=== PATIENT | male | born 1970 | race Caucasian/White ===

== ENCOUNTER 2017-03-30 19:10 | Emergency (ER) | payer SELFPAY ==
[2017-03-30 19:12] VITALS: BMI 23.7
[2017-03-30 19:22] VITALS: RESP 16; TEMP 98.2
[2017-03-30] MEDS ORDERED: Sodium Chloride 0.9% 500 ML IV STA (19:34)
[2017-03-30 20:03] LABS: ADD MANUAL DIFF? NO
[2017-03-30 20:07] LABS: BASO % 1.8 % (0.0-3.0); EOS # 0.1 (0.0-0.7); EOS % 2.5 % (1.5-5.0); GRAN # 2.28 (1.4-6.5); GRAN % 41.2 % (50.0-68.0); LYMPH # 2.4 (1.2-3.4); LYMPH % 42.4 % (22.0-35.0); MEAN CELL VOLUME 97.4 fL (80.0-105.0); MEAN CORPUSCULAR HEMOGLOBIN 34.6 pg (25.0-35.0); MEAN CORPUSCULAR HGB CONC 35.5 g/dl (31.0-37.0); MEAN PLATELET VOLUME 11.1 fl (7.0-11.0); MONO # 0.7 (0.1-0.6); MONO % 12.1 % (1.0-6.0); PLATELET COUNT 157 10^3/uL (120.0-450.0); RED CELL DISTRIBUTION WIDTH 13.7 % (11.5-14.5); WHITE BLOOD COUNT 5.5 10^3/ul (4.5-11.0)
[2017-03-30 20:18] VITALS: BP 146/90; PULSE 69; O2SAT 96
[2017-03-30 20:18] LABS: ALB/GLOB RATIO 1.4 (1.1-1.8); ALKALINE PHOSPHATASE 363 U/L (38-133); ALT/SGPT 131 U/L (7-56); AMYLASE 265 U/L (35-125); AST/SGOT 136 U/L (15-59); BILIRUBIN,TOTAL 0.7 mg/dL (0.2-1.3); BLOOD UREA NITROGEN 9 mg/dL (7-21); CALCIUM 9.4 mg/dL (8.4-10.5); CARBON DIOXIDE 25 mmol/L (21-33); CHLORIDE 107 mmol/L (98-107); GFR AFRICAN-AMERICAN > 60; GLUCOSE,RANDOM 124 mg/dL (70-110); LIPASE 1437 U/L (23-300); POTASSIUM 4.3 mmol/L (3.6-5.0); SODIUM 143 mmol/L (132-148); TOTAL PROTEIN 7.9 g/dL (5.8-8.3)
[2017-03-30 20:30] LABS: TROPONIN I < 0.01 ng/mL
--- NOTE | 2017-03-30 21:27 | ED PDOC ---
Arrival/HPI - General Chief Complaint: GI Problem Time Seen by Provider: 03/30/17 19:24 Historian: Patient - History of Present Illness Narrative History of Present Illness (Text): 03/30/17 21:25 Dayo Clayton is a 46 year old male, with a history of alcohol abuse, presents to the emergency department complaining of rectal bleeding for past 4 days. Also complains of abdominal discomfort associated with nausea and vomiting. Denies any hematemesis. Patient states he noticed blood while wiping after bowel movement. Denies any fever, chills, headache, dizziness, chest pain, difficulty breathing, diarrhea, urinary symptoms, or any other complaints at this time. Time/Duration: < week (4 days ) Symptom Onset: Gradual Severity Level: Mild Activities at Onset: Light Past Medical History - Provider Review Nursing Documentation Reviewed: Yes - Infectious Disease Hx of Infectious Diseases: None - Cardiac Hx Cardiac Disorders: No - Pulmonary Hx Respiratory Disorders: No - Neurological Hx Neurological Disorder: No - HEENT Hx HEENT Disorder: No - Renal Hx Renal Disorder: No - Endocrine/Metabolic Hx Endocrine Disorders: No - Hematological/Oncological Hx Blood Transfusions: No Hx Blood Transfusion Reaction: No - Integumentary Hx Dermatological Disorder: No - Musculoskeletal/Rheumatological Hx Musculoskeletal Disorders: No Hx Falls: No - Gastrointestinal Hx Pancreatitis: Yes - Genitourinary/Gynecological Hx Genitourinary Disorders: No - Psychiatric Hx Psychophysiologic Disorder: No Hx Substance Use: Yes - Surgical History Other/Comment: COLONOSCOPY - Anesthesia Hx Anesthesia: No Hx Anesthesia Reactions: No Hx Malignant Hyperthermia: No Family/Social History - Physician Review Nursing Documentation Reviewed: Yes Family/Social History: No Known Family HX Smoking Status: Heavy Smoker > 10 Cigarettes Daily Hx Alcohol Use: Yes (Daily) Frequency of alcohol use: Daily Hx Substance Use: Yes Substance used: HEROIN Allergies/Home Meds Allergies/Adverse Reactions: Allergies No Known Allergies Allergy (Verified 03/30/17 19:16) Home Medications: Home Meds Medication Instructions Recorded Confirmed No Known Home Med 03/30/17 03/30/17 Review of Systems - Physician Review All systems were reviewed & negative as marked: Yes - Review of Systems Constitutional: Normal. absent: Fatigue, Fevers Respiratory: Normal. absent: SOB, Cough, Sputum Cardiovascular: Normal. absent: Chest Pain, Palpitations Gastrointestinal: Abdominal Pain, Nausea, Vomiting, Other (rectal bleeding ). absent: Diarrhea Genitourinary Male: Normal Neurological: Normal. absent: Headache, Dizziness Psychiatric: Normal Physical Exam Vital Signs Reviewed: Yes Vital Signs Temp Pulse Resp BP Pulse Ox 03/30/17 19:34 69 16 146/90 96 03/30/17 19:17 98.2 F 68 16 164/71 H 97 Temperature: Afebrile Blood Pressure: Hypertensive Pulse: Regular Respiratory Rate: Normal Appearance: Positive for: Well-Appearing, Non-Toxic, Comfortable Pain Distress: None Mental Status: Positive for: Alert and Oriented X 3 - Systems Exam Head: Present: Atraumatic, Normocephalic Pupils: Present: PERRL Extroacular Muscles: Present: EOMI Conjunctiva: Present: Normal Mouth: Present: Moist Mucous Membranes Respiratory/Chest: Present: Clear to Auscultation, Good Air Exchange. No: Respiratory Distress, Accessory Muscle Use Cardiovascular: Present: Regular Rate and Rhythm, Normal S1, S2. No: Murmurs Abdomen: Present: Normal Bowel Sounds. No: Tenderness, Distention, Peritoneal Signs, Rebound, Guarding Upper Extremity: Present: Normal Inspection. No: Cyanosis, Edema Lower Extremity: Present: Normal Inspection. No: Edema Neurological: Present: GCS=15, CN II-XII Intact, Speech Normal, Motor Func Grossly Intact, Normal Sensory Function Skin: Present: Warm, Dry, Normal Color. No: Rashes Psychiatric: Present: Alert, Oriented x 3, Normal Insight, Normal Concentration Medical Decision Making ED Course and Treatment: 03/30/17 21:28 Impression: A 46 year old male who presents to the emergency department complaining of rectal bleeding for past 4 days. Plan: -- EKG -- Pepcid -- IV fluids -- Zofran -- X-ray abdomen -- X-ray left hand -- Reassess and disposition Progress Notes: 03/30/17 21:31 EKG reviewed by me: NSR @ 62 bpm. Normal [place]. Normal Interval. I strongly advised the patient to stay in the hospital for the completion of treatment and informed of the risks of leaving against medical advice. Patient states he understands the risks of leaving and is adamant in his decision. I advised him to present to emergency department for worsening symptoms and follow up with PMD within few days. Leaving Against Medical Advice (AMA): The patient is choosing to leave against medical advice. I have personally explained to the patient that choosing to do so may result in permanent bodily harm or . I have discussed at great length that without further evaluation and monitoring there may be unforeseen circumstances and/or deterioration causing permanent bodily harm or as a result of their choice. The patient is alert, oriented, and shows the mental capacity to make clear decisions regarding the patients health care at this time. The patient continues to wish to leave against medical advice. The patient has been advised that they should return to the emergency room immediately if they change their mind at any time, or if their condition begins to change or worsen in any way.. - Lab Interpretations Lab Results: 03/30/17 19:48 03/30/17 19:48 Lab Results 03/30/17 19:48: Blood Type A POSITIVE, Antibody Screen Negative, BBK History Checked Patient has bt 03/30/17 19:48: Sodium 143, Potassium 4.3, Chloride 107, Carbon Dioxide 25, Anion Gap 15, BUN 9, Creatinine 0.7, Est GFR ( Amer) > 60, Est GFR (Non- Af Amer) > 60, Random Glucose 124 H, Calcium 9.4, Total Bilirubin 0.7, AST 136 H , ALT 131 H, Alkaline Phosphatase 363 H, Lactate Dehydrogenase 856 H, Total Creatine Kinase 297 H, CK-MB (CK-2) 2.8, CK-MB (CK-2) % Cancelled, Troponin I < 0.01, Total Protein 7.9, Albumin 4.6, Globulin 3.3, Albumin/Globulin Ratio 1.4, Amylase 265 H, Lipase 1437 H 03/30/17 19:48: WBC 5.5 D, RBC 3.90, Hgb 13.5 L, Hct 38.0 L, MCV 97.4, MCH 34.6 , MCHC 35.5, RDW 13.7, Plt Count 157, MPV 11.1 H, Gran % 41.2 L, Lymph % (Auto) 42.4 H, [place] % (Auto) 12.1 H, Eos % (Auto) 2.5, Baso % (Auto) 1.8, Gran # 2.28, Lymph # 2.4, [place] # 0.7 H, Eos # 0.1, Baso # 0.10 I have reviewed the lab results: Yes - EKG Interpretation Interpreted by ED Physician: Yes Type: 12 lead EKG - Medication Orders Current Medication Orders: Discontinued Medications Famotidine (Pepcid) 20 mg IVP STAT STA Stop: 03/30/17 19:35 Sodium Chloride (Sodium Chloride 0.9%) 500 mls @ 1,000 mls/hr IV .Q30M STA Stop: 03/30/17 20:03 Ondansetron HCl (Zofran Inj) 4 mg IVP STAT STA Stop: 03/30/17 19:35 - Scribe Statement The provider has reviewed the documentation as recorded by the Ceci Shaffer Provider Attestation: All medical record entries made by the Ceci were at my direction and personally dictated by me. I have reviewed the chart and agree that the record accurately reflects my personal performance of the history, physical exam, medical decision making, and the department course for this patient. I have also personally directed, reviewed, and agree with the discharge instructions and disposition. Disposition/Present on Arrival - Present on Arrival Any Indicators Present on Arrival: No History of DVT/PE: No History of Uncontrolled Diabetes: No Urinary Catheter: No History of Decub. Ulcer: No History Surgical Site Infection Following: None - Disposition Have Diagnosis and Disposition been Completed?: Yes Diagnosis: Alcohol abuse, Elevated LFTs Disposition: AGAINST MEDICAL ADVICE Disposition Time: 20:50 Condition: UNKNOWN Referrals: Rajesh Bowlign [Primary Care Provider] - Follow up with primary
--- NOTE | 2017-04-01 01:45 | CARD ---
APPROVED REPORT EKG Measurement Heart [id number] <Conclusion> Normal sinus rhythm Normal ECG
== END 2017-03-30 20:55 | disposition left against medical advice (07) ==
LOC: ED 19:10
DX: F10.10 Alcohol abuse, uncomplicated (principal); R79.89 Other specified abnormal findings of blood chemistry